=== PATIENT | female | born 2000 | race Caucasian/White ===

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

== ENCOUNTER 2020-09-11 19:39 | Emergency (ER) | payer MEDICAID ==
[~2020-09-11] VITALS: Ht 165.1 cm; Wt 52.0 kg
[2020-09-11 21:38] LABS: BASOPHILS % 0.3 % (0.0-2.0); EOSINOPHILS % 0.5 % (0.0-5.0); HEMATOCRIT. 36.6 % (36.0-48.0); LYMPHOCYTES % 29.4 % (20.0-50.0); MEAN CORPUSCULAR VOLUME 82.6 fL (81.0-99.0); MEAN PLATELET VOLUME 8.9 fl (7.4-10.4); MONOCYTES % 6.5 % (2.0-8.0); NEUTROPHILS % 63.3 % (40.0-76.0); PLATELET 219 x1000/uL (130-400); RED BLOOD CELL COUNT 4.44 mill/uL (4.2-5.4); RED CELL DISTRIBUTION WIDTH 16.2 % (11.6-14.6)
[2020-09-11 21:45] LABS: CHLORIDE 106 mEq/L (98-107)
[2020-09-11 21:57] LABS: HCG SCREEN POSITIVE
[2020-09-11] MEDS ORDERED: ACETAMINOPHEN 325MG TABLET PO ONE (22:15)
[2020-09-11 23:30] LABS: CLARITY URINE CLEAR (CLEAR); COLOR URINE YELLOW (YELLOW); KETONES URINE NEGATIVE (NEGATIVE); LEUKOCYTE ESTERASE URINE TRACE (NEGATIVE); NITRITE URINE NEGATIVE (NEGATIVE); OCCULT BLOOD URINE NEGATIVE (NEGATIVE); PH URINE 5.5 (4.5-8.0); PROTEIN URINE NEGATIVE (NEGATIVE); SPECIFIC GRAVITY URINE 1.023 (1.005-1.030); UROBILINOGEN URINE 0.2 E.U./dL (0.2-1.0)
[2020-09-12] MEDS ORDERED: NITROFURANTOIN 100MG M/M CAPSULE PO ONE (01:15)
[2020-09-12] MEDS ORDERED: NITR-87 MT (01:23)
[2020-09-12 01:40] VITALS: BP 114/81
[2020-09-14 04:08] LABS: NEISSERIA GONORRHOEAE NAA Negative (Negative)
== END 2020-09-12 02:03 | disposition home or self-care (01) ==
LOC: ER 19:39
DX: O23.32 Infections of other parts of urinary tract in pregnancy, second trimester (principal); O99.512 Diseases of the respiratory system complicating pregnancy, second trimester; Z3A.16 16 weeks gestation of pregnancy
CPT/HCPCS: 36415; 76805; 80053; 81003; 81025; 84702; 84703; 85025; 86850; 86900; 87210; 87491; 87591; 93005; 99285

== ENCOUNTER 2021-02-21 07:42 | Inpatient (IN) | payer OTHER ==
[~2021-02-21] VITALS: Ht 152.4 cm; Wt 61.2 kg
[~2021-02-21 07:42] MED LIST: NITR-87 MT
[2021-02-21] MEDS ORDERED: PREN-55 MT (07:49)
[2021-02-21] MEDS ORDERED: LIDOCAINE HCL 1% 20ML VIAL (Pyxis) INJ INFIL SCH (08:15)
[2021-02-21] MEDS ORDERED: BUTORPHANOL TARTRATE 2 MG/ML VIAL IV PRN (08:15)
[2021-02-21] MEDS ORDERED: NALOXONE HCL 0.4 MG/ML 1ML VIAL IM PRN (08:15)
[2021-02-21] MEDS ORDERED: DEXT 5%/LR + PITOCIN 20UNITS/L 1,000 ML IV SCH ×2 (08:15→12:45)
[2021-02-21] MEDS ORDERED: METHYLERGONOVINE MALEATE 0.2 MG/ML IM PRN (08:15)
[2021-02-21] MEDS ORDERED: CARBOPROST TROMETHAMINE 250 MCG/ML AMPUL IM PRN (08:15)
[2021-02-21] MEDS ORDERED: MISOPROSTOL 100MCG TABLET VG SCH (08:15)
[2021-02-21] MEDS ORDERED: AMPICILLIN 2GM in NS 100ML 100 ML IV SCH (09:00)
[2021-02-21] MEDS: LACTATED RINGERS 1,000 ML IV SCH ×2 (09:19→10:54)
[2021-02-21 09:23] LABS: BASOPHILS % 0.3 % (0.0-2.0); EOSINOPHILS % 0.7 % (0.0-5.0); HEMOGLOBIN. 11.3 g/dL (12.0-16.0); LYMPHOCYTES % 16.1 % (20.0-50.0); MEAN CORPUSCULAR HEMOGLOBIN 27.9 pg (28.0-32.0); MEAN CORPUSCULAR VOLUME 83.6 fL (81.0-99.0); MEAN PLATELET VOLUME 10.1 fl (7.4-10.4); MONOCYTES % 8.6 % (2.0-8.0); NEUTROPHILS % 74.3 % (40.0-76.0); PLATELET 140 x1000/uL (130-400); RED BLOOD CELL COUNT 4.06 mill/uL (4.2-5.4); RED CELL DISTRIBUTION WIDTH 13.7 % (11.6-14.6)
[2021-02-21 09:34] LABS: INR 0.9; PARTIAL THROMBOPLASTIN TIME 23.1 sec (23.4-31.0); PROTHROMBIN TIME 9.5 sec (9.6-11.0)
[2021-02-21 09:53] LABS: CLARITY URINE CLOUDY (CLEAR); COLOR URINE YELLOW (YELLOW); KETONES URINE NEGATIVE (NEGATIVE); LEUKOCYTE ESTERASE URINE TRACE (NEGATIVE); NITRITE URINE NEGATIVE (NEGATIVE); OCCULT BLOOD URINE 2+ (NEGATIVE); PROTEIN URINE NEGATIVE (NEGATIVE); SPECIFIC GRAVITY URINE 1.014 (1.005-1.030); UROBILINOGEN URINE 0.2 E.U./dL (0.2-1.0)
[2021-02-21 10:07] LABS: METHADONE URINE SCREEN NEGATIVE (NEGATIVE); OPIATES URINE SCREEN NEGATIVE (NEGATIVE)
[2021-02-21 10:08] LABS: *AMPHETAMINES SCREEN URINE NEGATIVE (NEGATIVE); *BARBITURATES SCREEN URINE NEGATIVE (NEGATIVE); *BENZODIAZEPINES SCREEN URINE NEGATIVE (NEGATIVE); *COCAINE SCREEN URINE NEGATIVE (NEGATIVE); CANNABINOID URINE SCREEN NEGATIVE (NEGATIVE); PHENCYCLIDINE URINE SCREEN NEGATIVE (NEGATIVE)
[2021-02-21] MEDS ORDERED: IBUPROFEN 400MG TABLET PO PRN (12:45)
[2021-02-21] MEDS ORDERED: RHO(D) IMMUNE GLOBULIN 300 MCG/SYR IM PRN (12:45)
[2021-02-21] MEDS ORDERED: IBUPROFEN 800MG TABLET PO PRN (12:45)
[2021-02-21] MEDS ORDERED: BENZOCAINE/LANOLIN/ALOE VERA SPRAY TOP PRN (12:45)
[2021-02-21 14:45] VITALS: BP 106/62
[2021-02-21] MEDS ORDERED: AMPICILLIN 1,000 MG in SODIUM CHLORIDE 0.9% 50 ML IV SCH (15:00)
[2021-02-21 15:15] VITALS: BP 101/60
[2021-02-21 16:15] VITALS: BP 118/61
[2021-02-21 16:33] LABS: HEPATITIS B SURFACE ANTIGEN NEGATIVE
[2021-02-21 19:30] VITALS: BP 119/71
[2021-02-22 04:00] VITALS: BP 109/41
[2021-02-22 06:54] LABS: BASOPHILS % 0.3 % (0.0-2.0); EOSINOPHILS % 0.2 % (0.0-5.0); HEMATOCRIT. 36.5 % (36.0-48.0); HEMOGLOBIN. 11.8 g/dL (12.0-16.0); LYMPHOCYTES % 16.5 % (20.0-50.0); MEAN CORPUSCULAR HEMOGLOBIN 27.4 pg (28.0-32.0); MEAN CORPUSCULAR VOLUME 84.8 fL (81.0-99.0); MEAN PLATELET VOLUME 9.4 fl (7.4-10.4); MONOCYTES % 6.1 % (2.0-8.0); NEUTROPHILS % 76.9 % (40.0-76.0); PLATELET 160 x1000/uL (130-400); RED BLOOD CELL COUNT 4.31 mill/uL (4.2-5.4)
[2021-02-22 07:35] VITALS: BP 114/60
[2021-02-22] MEDS ORDERED: PRENATAL VIT/FE FUMARATE/FA TABLET PO SCH (09:00)
== END 2021-02-22 16:00 | disposition home or self-care (01) | DRG 560 ==
LOC: 8 EST LDRP 07:42 → OBSVTOIN 07:42 → 8EST 14:10
PROVIDERS: ADMIT Obstetrics & Gynecology; ATTEND Obstetrics & Gynecology
PROC: 10D07Z6 Extraction of Products of Conception, Vacuum, Via Natural or Artificial Opening (ICD-10-PCS; principal; 2021-02-21)
PROC: 0HQ9XZZ Repair Perineum Skin, External Approach (ICD-10-PCS; 2021-02-21)
DX: O77.0 Labor and delivery complicated by meconium in amniotic fluid (principal); Z37.0 Single live birth; O70.0 First degree perineal laceration during delivery; O99.824 Streptococcus B carrier state complicating childbirth; Z20.822 Contact with and (suspected) exposure to COVID-19; Z3A.39 39 weeks gestation of pregnancy
CPT/HCPCS: 36415; 76805; 80305; 81003; 85025; 86592; 86703; 86762; 86850; 86900; 87340; 87426; 99281; G0378; J0290; J0595; J2590; J3490; J7120

== ENCOUNTER 2021-09-26 13:58 | Emergency (ER) | payer MEDICAID, OTHER ==
[~2021-09-26] VITALS: Ht 152.4 cm; Wt 45.0 kg
[~2021-09-26 13:58] MED LIST changes: -NITR-87 MT; +PREN-55 MT
[2021-09-26 15:44] LABS: BASOPHILS % 0.8 % (0.0-2.0); EOSINOPHILS % 0.6 % (0.0-5.0); HEMATOCRIT. 43.3 % (36.0-48.0); HEMOGLOBIN. 14.1 g/dL (12.0-16.0); LYMPHOCYTES % 45.2 % (20.0-50.0); MEAN CORPUSCULAR HEMOGLOBIN 27.5 pg (28.0-32.0); MEAN CORPUSCULAR VOLUME 84.7 fL (81.0-99.0); NEUTROPHILS % 46.4 % (40.0-76.0); PLATELET 176 x1000/uL (130-400); RED BLOOD CELL COUNT 5.12 mill/uL (4.2-5.4); RED CELL DISTRIBUTION WIDTH 14.1 % (11.6-14.6)
[2021-09-26 15:49] LABS: CHLORIDE 107 mEq/L (98-107)
[2021-09-26] MEDS ORDERED: ACETAMINOPHEN 325MG TABLET PO ONE (21:00)
[2021-09-26 21:11] LABS: HCG SCREEN NEGATIVE
[2021-09-26 21:59] LABS: CLARITY URINE CLEAR (CLEAR); COLOR URINE YELLOW (YELLOW); KETONES URINE TRACE (NEGATIVE); LEUKOCYTE ESTERASE URINE NEGATIVE (NEGATIVE); NITRITE URINE NEGATIVE (NEGATIVE); OCCULT BLOOD URINE NEGATIVE (NEGATIVE); PH URINE 5.5 (4.5-8.0); PROTEIN URINE TRACE (NEGATIVE); SPECIFIC GRAVITY URINE 1.032 (1.005-1.030); UROBILINOGEN URINE 0.2 E.U./dL (0.2-1.0)
[2021-09-26] MEDS ORDERED: ACET-2708 MT (22:12)
[2021-09-27 00:08] VITALS: BP 125/76
[2021-09-27] MEDS ORDERED: METR-167 MT (00:36)
[2021-09-27] MEDS ORDERED: CEFTRIAXONE SODIUM 500 MG/VIAL IM ONE (00:45)
[2021-09-27] MEDS ORDERED: AZITHROMYCIN 500 MG TABLET PO ONE (00:45)
[2021-09-27] MEDS ORDERED: METRONIDAZOLE 500MG TABLET PO ONE (00:45)
[2021-09-29 06:11] LABS: NEISSERIA GONORRHOEAE NAA Negative (Negative)
== END 2021-09-27 00:48 | disposition left against medical advice (07) ==
LOC: ER 13:58
DX: A59.9 Trichomoniasis, unspecified (principal); Z32.02 Encounter for pregnancy test, result negative
CPT/HCPCS: 36415; 80053; 81003; 84703; 85025; 87210; 87491; 87591; 99284

== ENCOUNTER 2021-10-03 15:15 | Emergency (ER) | payer MEDICAID ==
[~2021-10-03] VITALS: Ht 157.5 cm; Wt 62.0 kg
[~2021-10-03 15:15] MED LIST changes: +ACET-2708 MT; +METR-167 MT
[2021-10-03] MEDS ORDERED: LIDOCAINE HCL 1% 20ML VIAL (Pyxis) INJ INFIL ONE (16:45)
[2021-10-03] MEDS ORDERED: CEFTRIAXONE SODIUM 500 MG/VIAL IM ONE (16:45)
[2021-10-03 17:22] LABS: CLARITY URINE CLEAR (CLEAR); COLOR URINE YELLOW (YELLOW); KETONES URINE TRACE (NEGATIVE); LEUKOCYTE ESTERASE URINE 1+ (NEGATIVE); NITRITE URINE NEGATIVE (NEGATIVE); OCCULT BLOOD URINE NEGATIVE (NEGATIVE); PROTEIN URINE NEGATIVE (NEGATIVE); SPECIFIC GRAVITY URINE 1.035 (1.005-1.030)
[2021-10-03] MEDS ORDERED: DOXY100C5 MT (18:04)
[2021-10-03] MEDS ORDERED: METR-167 MT (18:04)
[2021-10-03 18:38] VITALS: BP 122/89
[2021-10-06 09:11] LABS: NEISSERIA GONORRHOEAE NAA Negative (Negative)
== END 2021-10-03 18:39 | disposition home or self-care (01) ==
LOC: ER 15:15
DX: N76.0 Acute vaginitis (principal)
CPT/HCPCS: 81003; 81025; 87210; 87491; 87591; 96372; 99283; J0696; J3490; Z7610

== ENCOUNTER 2022-01-28 01:47 | Emergency (ER) | payer MEDICAID ==
[~2022-01-28] VITALS: Ht 160 cm; Wt 41.8 kg
[~2022-01-28 01:47] MED LIST changes: +DOXY100C5 MT
[2022-01-28 01:50] VITALS: BP 111/66
[2022-01-28] MEDS ORDERED: ACETAMINOPHEN 325MG TABLET PO ONE (06:00)
[2022-01-28] MEDS ORDERED: TOPUD PO (07:01)
== END 2022-01-28 07:15 | disposition home or self-care (01) ==
LOC: ER 02:16
DX: M54.6 Pain in thoracic spine (principal)
CPT/HCPCS: 71045; 81025; 99283

== ENCOUNTER 2022-03-24 11:51 | Emergency (ER) | payer MEDICAID ==
[~2022-03-24] VITALS: Ht 152.4 cm; Wt 45.0 kg
[~2022-03-24 11:51] MED LIST changes: +TOPUD PO
[2022-03-24] MEDS ORDERED: LIDOCAINE HCL/PF 1% 10 MG/ML 5ML VIAL INFIL ONE (12:45)
[2022-03-24] MEDS ORDERED: CEFTRIAXONE SODIUM 500 MG/VIAL IM ONE (12:45)
[2022-03-24] MEDS ORDERED: DOXY100C5 MT (13:29)
[2022-03-24 13:59] LABS: CLARITY URINE CLEAR (CLEAR); COLOR URINE YELLOW (YELLOW); KETONES URINE NEGATIVE (NEGATIVE); LEUKOCYTE ESTERASE URINE NEGATIVE (NEGATIVE); NITRITE URINE NEGATIVE (NEGATIVE); OCCULT BLOOD URINE NEGATIVE (NEGATIVE); PH URINE 5.5 (4.5-8.0); PROTEIN URINE NEGATIVE (NEGATIVE); SPECIFIC GRAVITY URINE 1.026 (1.005-1.030); UROBILINOGEN URINE 0.2 E.U./dL (0.2-1.0)
[2022-03-24] MEDS ORDERED: METR-167 MT (14:16)
[2022-03-24 14:30] VITALS: BP 126/76
[2022-03-26 09:07] LABS: HIV SCREEN 4G Non Reactive (Non Reactive)
== END 2022-03-24 14:32 | disposition home or self-care (01) ==
LOC: ER 11:51
DX: N76.0 Acute vaginitis (principal); A74.9 Chlamydial infection, unspecified; A54.9 Gonococcal infection, unspecified; J45.909 Unspecified asthma, uncomplicated; Z79.899 Other long term (current) drug therapy
CPT/HCPCS: 81003; 81025; 86592; 87210; 87389; 87491; 87591; 96372; 99283; J0696; J3490; Z7610

== ENCOUNTER 2022-03-28 12:58 | Emergency (ER) | payer MEDICAID | END 2022-03-28 16:42 | disposition left against medical advice (07) | LOC: ER 12:58 | DX: Z53.21 Procedure and treatment not carried out due to patient leaving prior to being seen by health care provider (principal) ==